=== PATIENT | male | born 1945 | race Caucasian/White ===

== ENCOUNTER → 2020-12-08 | Outpatient (CLI) | payer OTHER ==
[~2020-12-08] MED LIST: ASPIRIN81 MG PO; ATORVASTATIN CA40 MG PO; FORTAMET1000 MG PO; GLIPIZIDE ER10 MG PO; IMDUR ER TAB 6060 MG PO; LOPRESSOR100 MG PO; LOSARTAN-HCTZ1 EAC1 PO; MULTIVITAMINS1 EAC1 PO; PLAVIX 75 MG TA75 MG PO; PLETAL 100 MG100 MG PO; PROTONIX 40 MG40 M1 PO
== END ==
LOC: ECHO 14:00 → KOH-I 14:52 → ECHO 14:52
DX: R06.00 Dyspnea, unspecified (principal); J84.10 Pulmonary fibrosis, unspecified; I70.0 Atherosclerosis of aorta; I07.1 Rheumatic tricuspid insufficiency
CPT/HCPCS: ECHO; 71250; 93306

== ENCOUNTER → 2020-12-31 | Outpatient (CLI) | payer OTHER ==
[2021-01-03 16:11] LABS: ANA DIRECT Negative (Negative); ANTIMYELOPEROXIDASE (MPO) ABS <9.0 U/mL (0.0-9.0); ANTIPROTEINASE 3 (PR-3) ABS <3.5 U/mL (0.0-3.5); ATYPICAL PANCA <1:20 titer (Neg:<1:20); CYTOPLASMIC (C-ANCA) <1:20 titer (Neg:<1:20); PERINUCLEAR (P-ANCA) <1:20 titer (Neg:<1:20)
== END ==
LOC: LAB 10:58
PROVIDERS: Internal Medicine Pulmonary Disease
DX: J84.112 Idiopathic pulmonary fibrosis (principal); R09.02 Hypoxemia
CPT/HCPCS: 36415; 36600; 82803; 86038; 86431

== ENCOUNTER → 2020-12-31 | Outpatient (CLI) | payer OTHER | LOC: HEART 5 09:57 | DX: J84.112 Idiopathic pulmonary fibrosis (principal) | CPT/HCPCS: 94060; 94729 ==

== ENCOUNTER 2021-05-26 12:25 | Inpatient (IN) | payer OTHER ==
[~2021-05-26] VITALS: Ht 177.8 cm; Wt 79.6 kg
[~2021-05-26 12:25] MED LIST changes: +ASPIRIN325 MG PO; -ASPIRIN81 MG PO; -FORTAMET1000 MG PO; +METFORMIN HCL500 MG PO
[2021-05-26 13:00] LABS: HEMOGLOBIN 12.6 gm/dl (14.0-17.5); RED BLOOD COUNT 4.18 M/UL (4.20-5.50); WHITE BLOOD COUNT 12.5 K/UL (4.5-11.0)
[2021-05-26 14:21] LABS: BUN/CREATININE RATIO 19 (0-10)
[2021-05-26] MEDS ORDERED: PREDNISONE20 MG PO (20:27)
[2021-05-26] MEDS ORDERED: BROMFED DM COU473 ML PO (20:30)
[2021-05-26] MEDS ORDERED: PRAVASTATIN SOD10 MG PO (20:30)
[2021-05-26] MEDS ORDERED: AMLODIPINE BESY10 MG PO (20:30)
[2021-05-26] MEDS ORDERED: BREZTRI AEROS10.7 GM INH (20:31)
[2021-05-26] MEDS ORDERED: CILOSTAZOL100 MG PO (20:31)
[2021-05-26] MEDS ORDERED: FARXIGA10 MG PO (20:32)
[2021-05-26] MEDS ORDERED: VITAMIN D3125 MC1 PO (20:32)
[2021-05-26] MEDS ORDERED: ZINC50 M2 PO (20:32)
[2021-05-27 03:25] LABS: RED BLOOD COUNT 4.11 M/UL (4.20-5.50)
[2021-05-27 03:32] LABS: WHITE BLOOD COUNT 8.3 K/UL (4.5-11.0)
[2021-05-27 04:11] LABS: BUN/CREATININE RATIO 20 (0-10)
[2021-05-28 02:43] LABS: HEMOGLOBIN 10.2 gm/dl (14.0-17.5); WHITE BLOOD COUNT 9.3 K/UL (4.5-11.0)
[2021-05-28 02:47] LABS: RED BLOOD COUNT 3.5 M/UL (4.20-5.50)
[2021-05-29 03:03] LABS: HEMOGLOBIN 9.8 gm/dl (14.0-17.5); RED BLOOD COUNT 3.37 M/UL (4.20-5.50); WHITE BLOOD COUNT 10.9 K/UL (4.5-11.0)
[2021-05-29 03:39] LABS: BUN/CREATININE RATIO 33 (0-10)
--- NOTE | 2021-05-29 22:42 | NUR ---
LATE ENTRY. 05/29/212153 NOTIFIED DR. ORO OF PTS GLUCOSE. ORDERS RECIEVED FOR 5UNITS EXTRA PLUS SLIDING SCALE. GAVE PT PRESCRIBED DOSE ORDERED.
[2021-05-30 03:35] LABS: BUN/CREATININE RATIO 35 (0-10)
--- NOTE | 2021-05-30 05:42 | NUR ---
WHILE GIVING AM MEDS PT NOTED TO BE TACHYCARDIC UP TO 130'S. 17 BEAT RUN OF V-TACH NOTED. CALLED DR ORO AND NOTIFIED HIM OF HEART RHYTHM CHANGE. ORDERS FOR SOME LABS RECIEVED AND THAT [facility] CAN CONSULT CARDIOLOGY.
[2021-05-30 06:39] LABS: BUN/CREATININE RATIO 31 (0-10)
[2021-05-30] MEDS ORDERED: DOXYCYCLINE HY100 M2 PO (12:07)
[2021-05-30] MEDS ORDERED: LANTUS SOL100 UNIT/1 SQ (12:14)
[2021-05-30] MEDS ORDERED: HUMALOG100 UNIT/3 SC (12:14)
[2021-05-30] MEDS ORDERED: LASIX20 MG PO (12:24)
[2021-05-30] MEDS ORDERED: K-DUR TAB 10 M10 MEQ PO (12:24)
[2021-05-30 17:11] LABS: ORGANISM ID Not indicated. (.); SPECIMEN SOURCE Urine (.); STREPTOCOCCUS PNEUMONIAE AG Negative (Negative)
== END 2021-05-30 14:20 | disposition home or self-care (01) | DRG 196 ==
LOC: ER1 12:25 → CDU 16:35 → PROG CARE 16:35
PROVIDERS: Emergency Medicine; Internal Medicine; Physician Assistant; ADMIT Internal Medicine
PROC: 5A09357 Assistance with Respiratory Ventilation, Less than 24 Consecutive Hours, Continuous Positive Airway Pressure (ICD-10-PCS; 2021-05-26)
PROC: 5A0945A Assistance with Respiratory Ventilation, 24-96 Consecutive Hours, High Flow/Velocity Cannula (ICD-10-PCS; 2021-05-26)
PROC: B24BZZZ Ultrasonography of Heart with Aorta (ICD-10-PCS; principal; 2021-05-27)
DX: J84.10 Pulmonary fibrosis, unspecified (principal); J18.9 Pneumonia, unspecified organism; I50.33 Acute on chronic diastolic (congestive) heart failure; J96.21 Acute and chronic respiratory failure with hypoxia; Z20.822 Contact with and (suspected) exposure to COVID-19; I34.0 Nonrheumatic mitral (valve) insufficiency; I27.20 Pulmonary hypertension, unspecified; E78.5 Hyperlipidemia, unspecified; E11.9 Type 2 diabetes mellitus without complications; K21.9 Gastro-esophageal reflux disease without esophagitis; I25.10 Atherosclerotic heart disease of native coronary artery without angina pectoris; E11.51 Type 2 diabetes mellitus with diabetic peripheral angiopathy without gangrene; I11.0 Hypertensive heart disease with heart failure; Z79.4 Long term (current) use of insulin; Z79.01 Long term (current) use of anticoagulants; Z79.82 Long term (current) use of aspirin; Z95.1 Presence of aortocoronary bypass graft
CPT/HCPCS: ECHO; 36415; 36600; 71045; 80048; 80053; 81001; 82550; 82553; 82803; 82962; 83036; 83540; 83550; 83605; 83735; 83874; 83880; 84100; 84484; 85025; 85027; 85652; 86140; 87040; 87070; 87086; 87205; 87278; 87899; 93005; 93306; 94640; 94660; 94664; 94760; 96374; 97116-GP-CQ; 97162; 97165; 97530-GP-CQ; 97535; 99285; J1650; J1940; J2543; J2920; J2930; Q9967; U0002

== ENCOUNTER → 2021-06-30 | Outpatient (CLI) | payer OTHER ==
[~2021-06-30] MED LIST changes: +AMLODIPINE BESY10 MG PO; +BREZTRI AEROS10.7 GM INH; +BROMFED DM COU473 ML PO; +CILOSTAZOL100 MG PO; +DOXYCYCLINE HY100 M2 PO; +FARXIGA10 MG PO; +HUMALOG100 UNIT/3 SC; +K-DUR TAB 10 M10 MEQ PO; +LANTUS SOL100 UNIT/1 SQ; +LASIX20 MG PO; +PRAVASTATIN SOD10 MG PO; +PREDNISONE20 MG PO; +VITAMIN D3125 MC1 PO; +ZINC50 M2 PO
== END ==
LOC: HEART 5 10:03
DX: R07.9 Chest pain, unspecified (principal); R93.1 Abnormal findings on diagnostic imaging of heart and coronary circulation; R94.39 Abnormal result of other cardiovascular function study; R94.2 Abnormal results of pulmonary function studies; I25.10 Atherosclerotic heart disease of native coronary artery without angina pectoris; I65.29 Occlusion and stenosis of unspecified carotid artery; G56.00 Carpal tunnel syndrome, unspecified upper limb
CPT/HCPCS: 71046; 94060; 94729